=== PATIENT | male | born 1985 | race Caucasian/White ===

== ENCOUNTER 2024-04-16 22:44 | Emergency (ER) | payer SELFPAY ==
[2024-04-16 23:11] VITALS: BP 142/101; PULSE 92; TEMP 37.1; O2SAT 97; BMI 44.8
--- NOTE | 2024-04-16 23:38 | XR_ITS ---
The [address] [address] Patient Name: TONY ETIENNE MRN: [id number] date: 1985 Sex: M Assigned Patient Location: ER Current Patient Location: ER Accession/Order Number: [id number] Exam Date: 04/16/2024 23:45 Report Date: 04/17/2024 02:00 At the request of: DELANEY MARKER Procedure: XR hip RT min 2V EXAM: XR hip RT min 2V HISTORY: fall on ice COMPARISON: None. TECHNIQUE: 2 views of the right hip were obtained. FINDINGS: No acute fracture or dislocation is seen. The right femoral head is well-seated in the acetabulum. The right sacroiliac joint, right hip joint, and pubic symphysis are preserved. XR/XR hip RT min 2V IMPRESSION: 1. No acute fracture or dislocation of the right hip is seen. If there is concern for an occult injury, cross-sectional imaging is recommended. Electronically authenticated by: Vito DIOP Date: 04/17/2024 02:00
--- NOTE | 2024-04-16 23:38 | CT_ITS ---
[address] [address] Patient Name: TONY ETIENNE MRN: [id number] date: 1985 Sex: M Assigned Patient Location: ER Current Patient Location: Accession/Order Number: [id number] Exam Date: 04/16/2024 23:45 Report Date: 04/17/2024 01:28 At the request of: DELANEY MARKER Procedure: CT head/brain wo con EXAM: CT head/brain wo con, CT cervical spine wo con INDICATION: 39 years old; Male. Closed head trauma. Fall on ice. TECHNIQUE: CT Head (ax/cor/sag reformats). Ionizing radiation dose reduced via iterative reconstruction/FBP blend and body size kV/mA adjustment. Comparison: None FINDINGS: POSTOPERATIVE CHANGES: None. BRAIN PARENCHYMA: No intraparenchymal or extra-axial hemorrhage. No mass effect. No midline shift or herniation. Normal owusu/white differentiation. VENTRICLES/EXTRA-AXIAL SPACES: Normal for patient's age. SINUSES/MASTOIDS: Mucoperiosteal thickening is present in the right maxillary sinus. Remaining sinuses are clear. Mastoids and middle ears are clear. MSK: No skull fractures. OTHER: No hyperdense intraluminal thrombus. TECHNIQUE: CT imaging of the cervical spine was performed. IV contrast: None. Dose reduction techniques were achieved by using automated exposure control and/or adjustment of mA and/or kV according to patient size and/or use of iterative reconstruction technique. COMPARISON: None available. FINDINGS: POSTOPERATIVE CHANGES: None. ALIGNMENT: Normal cervical lordosis. Mild torticollis concave to the left. COMPRESSION FRACTURES: No fracture or vertebral body collapse. No bone displacement. No asymmetric widening of the facets. PREVERTEBRAL SOFT TISSUES: Normal. CRANIOCERVICAL JUNCTION: There is a normal relationship of the occipital condyles, lateral masses of C1, and articular surfaces of C2. The base of the dens and body of C2 are intact. There is normal predental space with spurring arising from the anterior arch of C1 POSTERIOR FOSSA: In the tip of the dens. The cerebellar tonsils are above the foramen magnum. Disc levels: C2-C3: No disc herniation. No spinal canal or foraminal narrowing. C3-C4: No disc herniation. No spinal canal or foraminal narrowing. C4-C5: Beam hardening artifacts. Central canal and neural foramina are patent. Facet degeneration on the right. C5-C6: The morning artifacts. Calcification the anterior margin of the annulus. Central canal patent. Neural foramina patent. C6-C7: Beam hardening artifacts. Calcification the anterior margin of the annulus with osteophytes. Central canal patent. Neural foramina patent. C7-T1: The morning artifacts. Central canal patent. Neural foramina patent. UPPER THORACIC SPINE: Please see the separate dictation of the chest CT including the thoracic spine. OTHER: Inhomogeneous appearance of the thyroid gland with ill-defined low densities as well as focal calcification in the left lobe. Recommend nonemergent thyroid ultrasound. CT/CT head/brain wo con IMPRESSION: 1. No acute intracranial abnormality. No hemorrhage or mass effect. 2. Right maxillary sinus thickening. 3. No cervical fracture. No disc herniation or bony stenosis. 4. Inhomogeneous appearance of the thyroid gland with ill-defined hypodensities bilaterally and a calcification on the left. Recommend nonemergent thyroid ultrasound. Electronically authenticated by: JACI CANTRELL Date: 04/17/2024 01:28
--- NOTE | 2024-04-16 23:38 | CT_ITS ---
The [address] [address] Patient Name: TONY ETIENNE MRN: [id number] date: 1985 Sex: M Assigned Patient Location: ER Current Patient Location: ER Accession/Order Number: [id number] Exam Date: 04/16/2024 23:45 Report Date: 04/17/2024 01:59 At the request of: DELANEY MARKER Procedure: CT chest wo con EXAMINATION: CT chest wo con, 04/16/2024 9:45 PM MST HISTORY: fall on ice, right sided rib pain COMPARISON: None. TECHNIQUE: CT scan of the chest was performed without IV contrast. CT dose reduction technique was used, including Automated Exposure Control. FINDINGS: The lungs are clear. The central airways are patent. No pleural effusion or pneumothorax is seen. The cardiac chambers appear normal in size. The thoracic aorta and pulmonary arteries are normal in caliber. There is no mediastinal, hilar, or axillary lymphadenopathy by CT size criteria. There is a small hiatal hernia. Otherwise, the esophagus appears unremarkable. There are multiple hypodense thyroid gland nodules. There is a left thyroid gland calcification. Images through the upper abdomen reveal no significant abnormalities. No suspicious or aggressive bone lesions are seen. No acute fractures are seen. CORONARY ARTERIES: Coronary calcifications are absent. CT/CT chest wo con IMPRESSION: 1. No evidence of acute traumatic injury to the chest is seen. 2. Multiple thyroid gland nodules. These could be further evaluated with a nonemergent outpatient ultrasound examination as clinically indicated. Electronically authenticated by: Vito DIOP Date: 04/17/2024 01:59
--- NOTE | 2024-04-16 23:39 | CT_ITS ---
[address] [address] Patient Name: TONY ETIENNE MRN: [id number] date: 1985 Sex: M Assigned Patient Location: ER Current Patient Location: Accession/Order Number: [id number] Exam Date: 04/16/2024 23:45 Report Date: 04/17/2024 01:28 At the request of: DELANEY MARKER Procedure: CT cervical spine wo con EXAM: CT head/brain wo con, CT cervical spine wo con INDICATION: 39 years old; Male. Closed head trauma. Fall on ice. TECHNIQUE: CT Head (ax/cor/sag reformats). Ionizing radiation dose reduced via iterative reconstruction/FBP blend and body size kV/mA adjustment. Comparison: None FINDINGS: POSTOPERATIVE CHANGES: None. BRAIN PARENCHYMA: No intraparenchymal or extra-axial hemorrhage. No mass effect. No midline shift or herniation. Normal owusu/white differentiation. VENTRICLES/EXTRA-AXIAL SPACES: Normal for patient's age. SINUSES/MASTOIDS: Mucoperiosteal thickening is present in the right maxillary sinus. Remaining sinuses are clear. Mastoids and middle ears are clear. MSK: No skull fractures. OTHER: No hyperdense intraluminal thrombus. TECHNIQUE: CT imaging of the cervical spine was performed. IV contrast: None. Dose reduction techniques were achieved by using automated exposure control and/or adjustment of mA and/or kV according to patient size and/or use of iterative reconstruction technique. COMPARISON: None available. FINDINGS: POSTOPERATIVE CHANGES: None. ALIGNMENT: Normal cervical lordosis. Mild torticollis concave to the left. COMPRESSION FRACTURES: No fracture or vertebral body collapse. No bone displacement. No asymmetric widening of the facets. PREVERTEBRAL SOFT TISSUES: Normal. CRANIOCERVICAL JUNCTION: There is a normal relationship of the occipital condyles, lateral masses of C1, and articular surfaces of C2. The base of the dens and body of C2 are intact. There is normal predental space with spurring arising from the anterior arch of C1 POSTERIOR FOSSA: In the tip of the dens. The cerebellar tonsils are above the foramen magnum. Disc levels: C2-C3: No disc herniation. No spinal canal or foraminal narrowing. C3-C4: No disc herniation. No spinal canal or foraminal narrowing. C4-C5: Beam hardening artifacts. Central canal and neural foramina are patent. Facet degeneration on the right. C5-C6: The morning artifacts. Calcification the anterior margin of the annulus. Central canal patent. Neural foramina patent. C6-C7: Beam hardening artifacts. Calcification the anterior margin of the annulus with osteophytes. Central canal patent. Neural foramina patent. C7-T1: The morning artifacts. Central canal patent. Neural foramina patent. UPPER THORACIC SPINE: Please see the separate dictation of the chest CT including the thoracic spine. OTHER: Inhomogeneous appearance of the thyroid gland with ill-defined low densities as well as focal calcification in the left lobe. Recommend nonemergent thyroid ultrasound. CT/CT cervical spine wo con IMPRESSION: 1. No acute intracranial abnormality. No hemorrhage or mass effect. 2. Right maxillary sinus thickening. 3. No cervical fracture. No disc herniation or bony stenosis. 4. Inhomogeneous appearance of the thyroid gland with ill-defined hypodensities bilaterally and a calcification on the left. Recommend nonemergent thyroid ultrasound. Electronically authenticated by: JACI CANTRELL Date: 04/17/2024 01:28
[2024-04-16] MEDS: ONDANSETRON 4 MG RAPDIS TABLET SL (23:45)
[2024-04-16] MEDS: OXYCODONE HCL/ACETAMINOPHEN 5MG/325MG 1 TAB PO (23:46)
--- NOTE | 2024-04-17 01:07 | ED_ITS ---
HPI HPI - Fall General Chief Complaint: Fall Stated Complaint: FALL-BACK/SIDE PAIN Time Seen by Provider: 04/16/24 23:10 Source: patient Mode of arrival: Wheelchair History of Present Illness HPI Narrative: This 39-year-old male presents for evaluation of right hip pain and right posterior rib cage pain. The patient states he was getting out of his truck earlier today and fell on the ice. He states his feet went out from underneath him and he fell backwards striking the back of his head on the ice. He then fell and slid on his right hip and right posterior rib cage area underneath his friend's truck. The truck was not moving at that time. Since that time he has had pain in the head, neck, right posterior rib cage area and right hip. He denies any loss of consciousness. He has no difficulty breathing. He took ibuprofen and the Flexeril prior to coming to the hospital. Related Data Home Medications ?Medication ?Instructions ?Recorded ?Confirmed No Known Home Medications 04/16/24 04/16/24 Allergies Allergy/AdvReac Type Severity Reaction Status Date / Time No Known Drug Allergies Allergy Verified 04/16/24 23:22 Opioid HPI Opioid Management Most Recent Pain and Opioid Data: Last Pain Scale 5 04/17/24 01:51 04/17/24 Last MAR Pain Assessment 04/17/24 02:47 Review of Systems ROS Status of ROS 10 or more systems reviewed and unremark able except as noted in history and below PFSH PFSH Social History Little interest or pleasure in doing things: not at all Feeling down, depressed, or hopeless: not at all Exam Narrative Exam Narrative: Vital signs and Nursing Notes reviewed: Patient is afebrile with a normal pulse, blood pressure is elevated 142/101, he is not hypoxic with pulse ox of 97% on room air General: Awake, alert, oriented, nontoxic but uncomfortable appearing obese male, he is moving slowly but deliberately, no respiratory distress, GCS 15 HEENT: Normocephalic atraumatic-no visible injury to the head or scalp, patient is bald, mucous membranes are moist and pink, eyes are clear, normal conjunctiva, vision is grossly intact, posterior pharynx is normal in appearance. Neck: Thick, no midline bony vertebral tenderness or step-off Chest: Patient is taking shallow breaths due to right posterior rib cage pain. There is no anterior chest tenderness. In the posterior rib cage area there is no redness, swelling, bruising's or crepitus noted CVS: Regular rate and rhythm S1-S2, no murmurs rubs or gallops, pulses are brisk and equal bilaterally ABD: Soft, nondistended, nontender, no rebound guarding or rigidity, bowel sounds are normal, no pulsatile masses appreciated Extremities: Moving all extremities, no lower extremity tenderness or swelling noted, tenderness to the right posterior hip area. There is a superficial abrasion overlying the right proximal hip area, no midline bony vertebral cer vical, thoracic or lumbar tenderness Skin: Normal in appearance without rash,pallor, petechiae or purpura Neuro: No focal deficits Constitutional Vital Signs, click to edit/add: Last Vital Signs Temp 98.7 F 04/16/24 23:11 Pulse 92 H 04/16/24 23:11 Resp 14 04/17/24 02:53 BP 132/91 04/17/24 01:54 Pulse Ox 97 04/16/24 23:11 O2 Del Method Room Air 04/16/24 23:11 Course Vital Signs Vital signs: Vital Signs Temperature 98.7 F 04/16/24 23:11 Pulse Rate 92 H 04/16/24 23:11 Respiratory Rate 16 04/16/24 23:11 Blood Pressure 142/101 H 04/16/24 23:11 Pulse Oximetry 97 04/16/24 23:11 Oxygen Delivery Method Room Air 04/16/24 23:11 Temperature 98.7 F 04/16/24 23:11 Pulse Rate 92 H 04/16/24 23:11 Respiratory Rate 14 04/17/24 02:53 Blood Pressure 132/91 04/17/24 01:54 Pulse Oximetry 97 04/16/24 23:11 Oxygen Delivery Method Room Air 04/16/24 23:11 MDM - Fall MDM Narrative Medical decision making narrative: This 39-year-old male presents for evaluation of right flank and right hip pain. The patient was getting out of a truck earlier in the day and slipped on the ice striking the back of his head on the ground and then falling on his right hip and right rib cage area and sliding underneath his friend's truck. He has been having pain with any kind of movement in the right side since that time. He states he could barely get out of bed, sit or stand or walk. This was mostly due to the pain in his right hip. His neuroexam is normal. He does have a small abrasion over his right hip but otherwise his physical exam is benign. He is not having any shortness of breath. He has no weakness or numbness. He was medicated with a dose of Percocet, IM Norflex and when his CT scan of his brain was read as normal he was given IM Toradol. On reevaluation his symptoms have improved greatly. He is now able to ambulate and sit down and stand up without severe pain. CT scan of the brain and cervical spine which are included in the body of this report do not show any acute findings but did show a thyroid nodule. CT scan of the chest does not show any acute fractures or other notable abnormality. X-ray of the right hip is negative for acute findings. On reevaluation he is feeling much more comfortable and feels comfortable being discharged home. He was given 2 Percocet and a Zofran to take as needed until his prescriptions for Percocet, ibuprofen and Norflex can be filled. He was encouraged to rest, drink plenty of fluids, gentle stretching and given a note for work for this evening. Medical Records Medical records narrative: The [address] [address] [address] Scan Report Signed Patient: TONY ETIENNE MR#: [id number] : 1985 Acct:[id number] Age/Sex: 39 / M ADM Date: 04/16/24 Loc: ER Attending Dr: Ordering Physician: Rupa Romero Date of Service: 04/16/24 Procedure(s): CT head/brain wo con Accession Number(s): [id number] cc: Physician,Non-Staff M.D.~ The [address] [address] Patient Name: TONY ETIENNE MRN: [id number] date: 1985 Sex: M Assigned Patient Location: ER Current Patient Location: ER Accession/Order Number: [id number] Exam Date: 04/16/2024 23:45 Report Date: 04/17/2024 01:28 At the request of: RUPA ROMERO Procedure: CT head/brain wo con EXAM: CT head/brain wo con, CT cervical spine wo con INDICATION: 39 years old; Male. Closed head trauma. Fall on ice. TECHNIQUE: CT Head (ax/cor/sag reformats). Ionizing radiation dose reduced via iterative reconstruction/FBP blend and body size kV/mA adjustment. Comparison: None FINDINGS: POSTOPERATIVE CHANGES: None. BRAIN PARENCHYMA: No intraparenchymal or extra-axial hemorrhage. No mass effect. No midline shift or herniation. Normal owusu/white differentiation. VENTRICLES/EXTRA-AXIAL SPACES: Normal for patient's age. SINUSES/MASTOIDS: Mucoperiosteal thickening is present in the right maxillary sinus. Remaining sinuses are clear. Mastoids and middle ears are clear. MSK: No skull fractures. OTHER: No hyperdense intraluminal thrombus. TECHNIQUE: CT imaging of the cervical spine was performed. IV contrast: None. Dose reduction techniques were achieved by using automated exposure control and/or adjustment of mA and/or kV according to patient size and/or use of iterative reconstruction technique. COMPARISON: None available. FINDINGS: POSTOPERATIVE CHANGES: None. ALIGNMENT: Normal cervical lordosis. Mild torticollis concave to the left. COMPRESSION FRACTURES: No fracture or vertebral body collapse. No bone displacement. No asymmetric widening of the facets. PREVERTEBRAL SOFT TISSUES: Normal. CRANIOCERVICAL JUNCTION: There is a normal relationship of the occipital condyles, lateral masses of C1, and articular surfaces of C2. The base of the dens and body of C2 are intact. There is normal predental space with spurring arising from the anterior arch of C1 POSTERIOR FOSSA: In the tip of the dens. The cerebellar tonsils are above the foramen magnum. Disc levels: C2-C3: No disc herniation. No spinal canal or foraminal narrowing. C3-C4: No disc herniation. No spinal canal or foraminal narrowing. C4-C5: Beam hardening artifacts. Central canal and neural foramina are patent. Facet degeneration on the right. C5-C6: The morning artifacts. Calcification the anterior margin of the annulus. Central canal patent. Neural foramina patent. C6-C7: Beam hardening artifacts. Calcification the anterior margin of the annulus with osteophytes. Central canal patent. Neural foramina patent. C7-T1: The morning artifacts. Central canal patent. Neural foramina patent. UPPER THORACIC SPINE: Please see the separate dictation of the chest CT including the thoracic spine. OTHER: Inhomogeneous appearance of the thyroid gland with ill-defined low densities as well as focal calcification in the left lobe. Recommend nonemergent thyroid ultrasound. CT/CT head/brain wo con IMPRESSION: 1. No acute intracranial abnormality. No hemorrhage or mass effect. 2. Right maxillary sinus thickening. 3. No cervical fracture. No disc herniation or bony stenosis. 4. Inhomogeneous appearance of the thyroid gland with ill-defined hypodensities bilaterally and a calcification on the left. Recommend nonemergent thyroid ultrasound. Electronically authenticated by: JACI CANTRELL Date: 04/17/2024 01:[address] [address] XRay Report Signed Patient: TONY ETIENNE MR#: [id number] : 1985 Acct:[id number] Age/Sex: 39 / M ADM Date: 04/16/24 Loc: ER Attending Dr: Ordering Physician: Rupa Romero Date of Service: 04/16/24 Procedure(s): XR hip RT min 2V Accession Number(s): [id number] cc: Rupa Romero; Physician,Non-Staff M.D.~ The [address] [address] Patient Name: TONY ETIENNE MRN: [id number] date: 1985 Sex: M Assigned Patient Location: ER Current Patient Location: ER Accession/Order Number: [id number] Exam Date: 04/16/2024 23:45 Report Date: 04/17/2024 02:00 At the request of: RUPA ROMERO Procedure: XR hip RT min 2V EXAM: XR hip RT min 2V HISTORY: fall on ice COMPARISON: None. TECHNIQUE: 2 views of the right hip were obtained. FINDINGS: No acute fracture or dislocation is seen. The right femoral head is well-seated in the acetabulum. The right sacroiliac joint, right hip joint, and pubic symphysis are preserved. XR/XR hip RT min 2V IMPRESSION: 1. No acute fracture or dislocation of the right hip is seen. If there is concern for an occult injury, cross-sectional imaging is recommended. Electronically authenticated by: Vito DIOP Date: 04/17/2024 02:[address] [address] [address] Scan Report Signed Patient: TONY ETIENNE MR#: [id number] : 1985 Acct:[id number] Age/Sex: 39 / M ADM Date: 04/16/24 Loc: ER Attending Dr: Ordering Physician: Rupa Romero Date of Service: 04/16/24 Procedure(s): CT chest wo con Accession Number(s): [id number] cc: Physician,Non-Staff M.D.~ The [address] [address] Patient Name: TONY ETIENNE MRN: [id number] date: 1985 Sex: M Assigned Patient Location: ER Current Patient Location: ER Accession/Order Number: [id number] Exam Date: 04/16/2024 23:45 Report Date: 04/17/2024 01:59 At the request of: RUPA ROMERO Procedure: CT chest wo con EXAMINATION: CT chest wo con, 04/16/2024 9:45 PM MST HISTORY: fall on ice, right sided rib pain COMPARISON: None. TECHNIQUE: CT scan of the chest was performed without IV contrast. CT dose reduction technique was used, including Automated Exposure Control. FINDINGS: The lungs are clear. The central airways are patent. No pleural effusion or pneumothorax is seen. The cardiac chambers appear normal in size. The thoracic aorta and pulmonary arteries are normal in caliber. There is no mediastinal, hilar, or axillary lymphadenopathy by CT size criteria. There is a small hiatal hernia. Otherwise, the esophagus appears unremarkable. There are multiple hypodense thyroid gland nodules. There is a left thyroid gland calcification. Images through the upper abdomen reveal no significant abnormalities. No suspicious or aggressive bone lesions are seen. No acute fractures are seen. CORONARY ARTERIES: Coronary calcifications are absent. CT/CT chest wo con IMPRESSION: 1. No evidence of acute traumatic injury to the chest is seen. 2. Multiple thyroid gland nodules. These could be further evaluated with a nonemergent outpatient ultrasound examination as clinically indicated. Electronically authenticated by: Vito DIOP Date: 04/17/2024 01:59 Discharge Plan Discharge Chief Complaint: Fall Clinical Impression: Fall due to ice or snow, Contusion of rib on right side, Contusion of left hip, Closed head injury, Cervical strain, acute Patient Disposition: Home, Self-Care Time of Disposition Decision: 02:42 Prescriptions / Home Meds: No Action No Known Home Medications Print Language: Mauritian Instructions: Cervical Strain (ED), Head Injury (ED), Contusion in Adults (ED), Hip Contusion (ED), Rib Contusion (ED) Referrals: Physician,Non-Staff, MD [Primary Care Provider] - 1 week Discharge Date/Time: 04/17/24 02:57
[2024-04-17] MEDS: ORPHENADRINE 60 MG/ 2 ML VIAL IM (01:22)
[2024-04-17] MEDS: KETOROLAC TROMETHAMINE 60 MG/2 ML VIAL IM (01:51)
[2024-04-17 01:54] VITALS: BP 132/91
[2024-04-17] MEDS: ONDANSETRON 4 MG RAPDIS TABLET SL (02:46)
[2024-04-17] MEDS: OXYCODONE HCL/ACETAMINOPHEN 5MG/325MG 2 TAB PO (02:47)
== END 2024-04-17 02:57 | disposition home or self-care (01) ==
PROVIDERS: Emergency Provider Emergency Medicine
DX: S70.01XA Contusion of right hip, initial encounter (principal); S20.211A Contusion of right front wall of thorax, initial encounter; S09.8XXA Other specified injuries of head, initial encounter; S16.1XXA Strain of muscle, fascia and tendon at neck level, initial encounter; S70.211A Abrasion, right hip, initial encounter; W00.0XXA Fall on same level due to ice and snow, initial encounter
CPT/HCPCS: 70450; 71250; 72125; 73502; 96372; 99284; J1885; J2360; Q0162

== ENCOUNTER 2024-04-21 08:41 | Outpatient (OUT) | payer OTHER, SELFPAY ==
--- OUTSIDE RECORDS SUMMARY | 2024-04-21 08:46 | XMS_ITS | CCD ---
Author Organization [facility] Inform ion Partnership [facility] Care Team Providers Care Sound Effects Technician Name Role Phone REQUEST, DR NONE LISTED Primary Care UnavailPRITESH Quintero Attending PRITESH Sierra Consulting PRITESH Sierra Admitting Unavailable LULA REAL Admitting UnavailLULA Heath Attending Unavailabl e FARHAN, LULA Hutson Attending Unavailabl e Allergies Allergy Classification Reported Allergen(s) Allergy Type Date of Onset Reaction(s) Facility (1 source) Codeine Drug Allergy 12-23-[address] [facility] Repository Problems Problem Classification Problem Date Documented Date Episodic/Chronic Contraceptive and procreative management (1 source) Contraception status; Translations: [Encounter for other general counseling and advice on contraception] Onset: 04-03-2023 Episodic Essential hypertension (1 source) Essential (primary) hypertension; Translations: [ESSENTIAL PRIMARY HYPERTENSION] Onset: 11-23-2020 Chronic Other skin disorders (1 source) Follicular cyst of the skin and subcutaneous tissue, unspecified; Translations: [FOLLICULAR CYST SKIN SUBQ TISS UNS] Onset: 11-23-2020 Episodic Skin and subcutaneous tissue infections (1 source) Local infection of the skin and subcutaneous tissue, unspecified; Translations: [LOCAL INFECT SKIN SUBQ TISSUE UNS] Onset: 11-23-2020 Episodic Spondylosis; intervertebral disc disorders; other back problems (3 sources) Cervicalgia; Translations: [CERVICALGIA] Onset: 11-21-2020 Episodic Substance-related disorders (2 sources) Nicotine dependence; Translations: [Nicotine dependence, unspecified, uncomplicated] Onset: 04-03-2023 Chronic Unclassified (1 source) Patient encounter status 04-03-2023 Results Test Name Value Interpretation Reference Range Facil it Family Medicine Office/Clini c Noteon 04-20-2024 Family Medicine Office/Clinic Note Family Medicine Office/Clinic Note [facility] Staff French is a 39 year old male presenting with F/U FROM ER Acute: Current issues/complaints: Had ER @ [facility] 04/17/24 fell- has bruised ribs ER followup: Hospital: [facility] Visit date: 04/16/24 Symptoms the presented with: Fell on ice Current concerns: Still sore, but better then what he was, CT on neck and lungs and found several large modules they told him to F/u with PCP History of Present Illness 39 year old presents today to establish care and to f/u on recent ED visit after sustaining a fall on the ice on 04/17/2024. He reports he fell on the ice which resulted in right ribcage pain and right posterior hip pain. He had denies hitting his head at the time and the CT of the head/brain was negative but revealed hypodensities of the thyroid gland. Additional testing included a Xray of the right hip which was negative and a CT of the chest which revealed multiple thyroid nodules. He reports he continues with mild pain to the right lower lumbar region and the righ ribs. He states he has not taken more than 1/2 of the Percocet prescribed by the MD in the ED. He reports he has used ibuprofen 600 mg and this is treating his pain marginally. He declines a refill of the ibuprofen at this visit and states he wanted to f/u on the thyroid issues at this visit. He denies any family hx of thyroid disorders. He denies and intolerance to cold or heat. He reports he sometimes feels like something may be stuck in his throat. Review of Systems PHQ Score Initial Depression Screen Score: 0 SCORE Constitutional: no fever, no chills, no sweats, no weakness Skin: no Jaundice, no rash, no lesions, nopetechiae ENMT: no ear pain, no sore throat, no congestion, no hoarseness Respiratory: no shortness of breath, no cough, no orthopnea, no wheezing Cardiovascular: no chest pain, no palpitations, no edema Gastrointestinal: no nausea, no vomiting, no diarrhea, no GI bleeding Genitourinary: no dysuria, no hematuria, no discharge, no pain Musculoskeletal: mild back pain, no trauma Neurologic: no headache, no dizziness, no numbness, no weakness Psychiatric: no sleeping problems, no irritability, no mood swings/depression. Heme/Lymph: no bleeding tendency, no bruising tendency, no petechiae, no swollen nodes Allergy/Immunologic: no seasonal allergies, no food allergies, no recurrent infections, no impaired immunity Additional ROS info: Except as noted in the above Review of Systems and in the History of Present Illness all other systems have been reviewed and are negative or noncontributory. Physical Exam Vitals & Measurements T: 36.5 ???C(Oral) HR: 86(Peripheral) RR: 20 BP: 132/84 SpO2: 99% HT: 67 in HT: 170.0 cm WT: 132.5 kg WT: 292.112 lb BMI: 45.85 General: alert, no acute distress Skin: warm, dry Head: no trauma, normocephalic Neck: Trachea midline, no adenopathy, no tenderness; no thyroidmegaly Eye: normal conjunctiva, sclera clear ENMT: TM's clear, oral mucosa moist, no pharyngeal erythema or exudate Cardiovascular: regular rate and rhythm, normal peripheral perfusion Respiratory: Lungs CTA, respirations non labored Chest wall: no deformity. Gastrointestinal: soft, non distended, no tenderness, no guarding. Back: No tenderness, Normal ROM, Normal alignment. Extremities: no deformity, no trauma Neurological: oriented x 4, LOC appropriate for age, CN II-XII intact, motor strength equal & normal bilaterally, sensation equal & normal bilaterally, speech normal Psychiatric: cooperative, affect appropriate for age, normal judgement, normal psychiatric thoughts. Assessment/Plan 1. 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 Encounter to establish care with new provider (Z76.89: Persons encountering health services in other specified circumstances) 3. Vapes nicotine containing substance (Z72.0: Tobacco use) Encouraged to stop vaping Ordered: US Thyroid 4. BMI 45.0-49.9, adult (Z68.42: Body mass index [BMI] 45.0-49.9, adult) The standard range for ages 18 and older is >=18.5 and < 25 kg/m2. Your BMI today was above this range, this falls in the overweight to obese category and there are medical benefits to weight loss. We can offer counselling, referral, and/or medical support in addressing this problem. Your BMI and weight management will be followed at subsequent visits. Ordered: US Thyroid 5. Exogenous obesity (E66.09: Other obesity due to excess calories) The standard range for ages 18 and older is >=18.5 and < 25 kg/m2. Your BMI today was above this range, this falls in the overweight to obese category and there are medical benefits to weight loss. We can offer counselling, referral, and/or medical support (more content not included)... Normal [facility] Comment on above: Result Comment: Elec tronically Signed By: PALMA REAL CNP\.br\Date and Time Signed: 04/20/24 09:44 EST Vancomycin,Peakon 11-25-2020 Vancomycin,Peak 22.3 ug/mL Normal 20.0-40.0 [facility] Comment on above: Order Comment: Comme nt ?DRAW 1 HOUR AFTER INFUSION COMPLETES Date of last dose?: 20201124 Time of last dose?: 1899 Result Comment: Last dose: - PERFORMED BY: [place] [address] PATHOLOGIST TANNING WHEEL OPERATOR AZIZA MATSON M.D. Performed By: #### V ANCP #### [place] [id number] [facility] Vancomycin,Troughon 11-26-19 21 Vancomycin,Trough 10.6 ug/mL Normal 10.0-20.0 [facility] Comment on above: Result Comment: Last dose: - PERFORMED BY: [place] [address] PATHOLOGIST TANNING WHEEL OPERATOR AZIZA MATSON M.D. Performed By: #### V ANCT #### [facility] [address] [place], [place] [id number] [facility] Basic Metabolic Panelon 11-03 Calcium [Mass/Vol] 8.3 mg/dL Normal 8.2-10.2 [facility] Comment on above: Performed By: #### C BC, BMP #### [address] Chloride [Moles/Vol] 104 mmol/L Normal 95-114 [facility] Comment on above: Performed By: #### C BC, BMP #### [address] CO2 [Moles/Vol] 23.6 mmol/L Normal 22.0-30.0 [facility] Comment on above: Performed By: #### C BC, BMP #### [address] Creatinine [Mass/Vol] 0.74 mg/dL Normal 0.64-1.27 [facility] Comment on above: Performed By: #### C BC, BMP #### [address] Creatinine Clr Calc Pharmacy 203.38 [facility] Comment on above: Result Comment: PERF ORMED BY: [place] [address] PATHOLOGIST TANNING WHEEL OPERATOR AZIZA MATSON M.D. Performed By: #### C BC, BMP #### [address] Estimated GFR ( Diana > 60 [facility] Comment on above: Result Comment: GFR estimated reference range: According to KDOQI guidelines, <60 ml/min/1.73m2 is sufficient to diagnose a patient with chronic kidney disease. Performed By: #### C BC, BMP #### [address] Estimated GFR (Non- Am > 60 [facility] Comment on above: Performed By: #### C BC, BMP #### [address] Glucose [Mass/Vol] 93 mg/dL Normal 70-100 [facility] Comment on above: Result Comment: [place] Glucose Reference Range is dependent on time and content of last meal. Glucose of more than 200 mg/dL in a nonstressed, ambulatory subject supports the diagnosis of Diabetes Mellitus. ADA recommended reference range Performed By: #### C BC, BMP #### [facility] [address] Potassium [Moles/Vol] 4.1 mmol/L Normal 3.5-5.1 [facility] Comment on above: Performed By: #### C BC, BMP #### [facility] [address] [place] [address] Sodium [Moles/Vol] 138 mmol/L Normal 136-146 [facility] Comment on above: Performed By: #### C BC, BMP #### [address] Urea nitrogen [Mass/Vol] 6 mg/dL Low 9- [facility] Comment on above: Performed By: #### C BC, BMP #### [address] Blood Cultureon 11-23-2020 Bacteria identified Cx Nom (Bld) NO GROWTH 5 DAYS PERFORMED BY: [place] [address] PATHOLOGIST TANNING WHEEL OPERATOR AZIZA MATSON M.D. [facility] Comment on above: Performed By: #### C UBLD #### [address] Bacteria identified Cx Nom (Bld) NO GROWTH 5 DAYS PERFORMED BY: [place] [address] PATHOLOGIST TANNING WHEEL OPERATOR AZIZA MATSON M.D. [facility] Comment on above: Performed By: #### C UBLD #### [address] COVID-19 Antigenon 1 COVID-19 Antigen Healthcare Worker?: N Raisa Reference Raisa Reference Negative SARS-CoV+SARS-CoV-2 (COVID-19) Ag [Presence] in Respiratory specimen by Rapid immunoassay Negative for SARS Antigen by CHARMAINE COVID19 Blank Space Raisa Disclaimer Negative results, from patients with symptom Raisa Disclaimer onset beyond five days, should be treated as Raisa Disclaimer presumptive and confirmation with a molecular Raisa Disclaimer assay, if necessary, for patient management, Raisa Disclaimer may be performed. Negative results do not rule Raisa Disclaimer out COVID-19 and should not be used as the sole Raisa Disclaimer basis for treatment or patient management Raisa Disclaimer decisions, including infection control decisions. Raisa Disclaimer Negative results should be considered in the Raisa Disclaimer context of a patient's recent exposures, history Raisa Disclaimer and the presence of clinical signs and symptoms Raisa Disclaimer consistent with COVID-19. COVID19 Blank Space Raisa Disclaimer The Raisa SARS Antigen CHARMAINE does not differentiate Raisa Disclaimer between SARS-CoV and SARS-CoV-2. COVID19 Blank Space Riasa Disclaimer This test was developed and its performance Raisa Disclaimer characteristic determined by [employer] and Raisa Disclaimer validated at [facility]. This Raisa Disclaimer test has not been FDA cleared or approved. This Raisa Disclaimer test has been authorized by FDA under an Emergency Use Raisa Disclaimer Authorization (EUA). This test has been validated Raisa Disclaimer in accordance with the FDA's Guidance Document (Policy Raisa Disclaimer for Diagnostics Testing in Laboratories Certified to Raisa Disclaimer Perform High Complexity Testing under CLIA prior to Raisa Disclaimer Emergency Use Authorization for Coronavirus Raisa Disclaimer isease-2018 during the Public Health Emergency) Raisa Disclaimer issued on June 04, 2019. This test is only authorized Raisa Disclaimer for the duration of time the declaration that Raisa Disclaimer circumstances exist justifying the authorization of Raisa Disclaimer the emergency use of in vitro diagnostic tests for Raisa Disclaimer detection of SARS-CoV-2 virus and/or diagnosis of Raisa Disclaimer COVID-19 infection under section 564(b)(1) of the Raisa Disclaimer Act, 21 U.S.C. 360bbb-3(b)(1), unless the Raisa Disclaimer authorization is terminated or revoked sooner. PERFORMED BY: [place] [address] PATHOLOGIST TANNING WHEEL OPERATOR AZIZA MATSON M.D. Normal [facility] Comment on above: Performed By: #### C OVID-19 RAISA, COVID 19 [facility], SOFIANEG #### [address] COVID-19 [facility] SARS-CoV-2 (COVID-19) RNA CAROL+probe Ql (Unsp spec) Negative Normal Negative [facility] Comment on above: Order Comment: Healt hcare Worker?: N Result Comment: Testing for SARS-CoV-2 by RT-PCR This test was developed and its performance characteristics determined by [employer]) and validated at the [facility]. This test has not been FDA cleared or approved. This test has been authorized by FDA under an Emergency Use Authorization (EUA). This test has been validated in accordance with the FDA's Guidance Document (Policy for Diagnostics Testing in Laboratories Certified to Perform High Complexity Testing under CLIA prior to Emergency Use Authorization for Coronavirus Disease-2019 during the Public Health Emergency) issued on June 04, 2019. This test is only authorized for the duration of time the declaration that circumstances exist justifying the authorization of the emergency use of in vitro diagnostic tests for detection of SARS-CoV-2 virus and/or diagnosis of COVID-19 infection under section 564(b)(1) of the Act, 21 U.S.C. 360bbb-3(b)(1), unless the authorization is terminated or revoked sooner. PERFORMED BY: [place] [address] PATHOLOGIST TANNING WHEEL OPERATOR AZIZA MATSON M.D. Performed By: #### C OVID-19 RAISA, COVID 19 [facility], SOFIANEG #### [address] soft tissue neck w conon 11-23-2020 CT soft tissue neck w con [facility] [place] [address] [place] [address] CT Scan Report Signed Patient: French Snow MR#: [id number] : 1985 Acct:[id number] Age/Sex: 35 / M ADM Date: 11/23/20 Loc: ER Room: Type: [facility] ER Attending Dr: Ordering Provider: Nura Tapia APRN Date of Service: 11/23/20 CT/CT soft tissue neck w con: mass posterior neck Copies to: Nura Tapia APRN CT SOFT TISSUE NECK WITH CONTRAST COMPARISON: None CLINICAL DATA: Left neck lump for the past few days. Spiral images were obtained through the neck following 90 mL Isovue-300. This CT exam was performed using one or more following dose reduction techniques: Automated exposure control, adjustment of the mA and/or kV according to patient size, or use of iterative reconstruction technique. Assessment is slightly limited by large body habitus. The thyroid lobes are mildly heterogeneous and there is calcification on the left. The submandibular and parotid glands appear symmetric. There is mild prominence of the adenoids and tonsils. There is no suspected abscess. There is slight associated narrowing of the oropharyngeal airway at this site. The epiglottis and vocal cords are unremarkable. There are a few small shotty cervical lymph nodes however none which are pathologically enlarged or necrotic. There is asymmetric subcutaneous edema at the posterior left neck there may also be minor asymmetric skin thickening. This might be cellulitis. Correlation is recommended as to whether not this is the site of patient's symptoms. The cervical spine is unremarkable. There is a trace amount of fluid within the right maxillary sinus. The remaining nasal sinuses and mastoid air cells are clear. Limited images through the upper lungs show no contributory findings. CT/CT soft tissue neck w con IMPRESSION: MILD NONSPECIFIC PROMINENCE OF THE TONSILS AND ADENOIDS. NO MASS OR ADENOPATHY THOUGH THERE IS SUBCUTANEOUS INFLAMMATION AND SLIGHT SKIN THICKENING AT THE BACK OF THE NECK ON THE LEFT. CLINICAL CORRELATION IS SUGGESTED. MINOR RIGHT MAXILLARY SINUS DISEASE. Impression dictated by: Antonia Campbell M.D.11/23/2020 3:53 PM Dictation Location: [place] [address] Transcribed By: [facility] 11/23/20 155 Dictated By: Antonia Campbell MD 11/23/20 1543 Signed By: 11/23/20 1553 Normal [facility] Complete Blood Count Auto Di ffon 11-23-2020 Basophils (Bld) [#/Vol] 0.1 10*3/uL Normal 0.0-0.2 [facility] Comment on above: Result Comment: PERF ORMED BY: [place] [address] PATHOLOGIST TANNING WHEEL OPERATOR AZIZA MATSON M.D. Performed By: #### C BC, BMP #### [address] Basophils/100 WBC (Bld) 0.6 % Normal . [facility] Comment on above: Performed By: #### C BC, BMP #### [address] Eosinophils (Bld) [#/Vol] 0.2 10*3/uL Normal 0.0-0.45 [facility] Comment on above: Performed By: #### C BC, BMP #### [address] Eosinophils/100 WBC (Bld) 1.1 % Normal . [facility] Comment on above: Performed By: #### C BC, BMP #### [address] Erythrocyte distribution width (RBC) [Ratio] 12.5 % Normal 12.0-14.8 [facility] Comment on above: Performed By: #### C BC, BMP #### [place] [address] [place] Hematocrit (Bld) [Volume fraction] 48.7 % Normal 38.8-50.0 [facility] Comment on above: Performed By: #### C BC, BMP #### [facility] [address] Hemoglobin (Bld) [Mass/Vol] 16.7 g/dL Normal 13.0-17.0 [facility] Comment on above: Performed By: #### C BC, BMP #### [facility] [address] Lymphocytes (Bld) [#/Vol] 3.1 10*3/uL Normal 1.00-4.8 [facility] Comment on above: Performed By: #### C BC, BMP #### [address] Lymphocytes/100 WBC (Bld) 21.6 % Normal . [facility] Comment on above: Performed By: #### C BC, BMP #### [address] MCH (RBC) [Entitic mass] 31.1 pg Normal 27.5-35.2 [facility] Comment on above: Performed By: #### C BC, BMP #### [address] MCV (RBC) [Entitic vol] 90.8 fL Normal 83.5-101 [facility] Comment on above: Performed By: #### C BC, BMP #### [address] Mean Corpuscular HGB Conc 34.2 g/dL Normal 32.5-35.6 [facility] Comment on above: Performed By: #### C BC, BMP #### [address] Monocytes (Bld) [#/Vol] 0.8 10*3/uL Normal 0.0-0.8 [facility] Comment on above: Performed By: #### C BC, BMP #### [place] [id number] [place] Monocytes/100 WBC (Bld) 5.7 % Normal . [facility] Comment on above: Performed By: #### C BC, BMP #### [facility] [address] Neutrophils (Bld) [#/Vol] 10.3 10*3/uL High 1.8-7.7 [facility] Comment on above: Performed By: #### C BC, BMP #### [facility] [address] Neutrophils/100 WBC (Bld) 71.0 % Normal . [facility] Comment on above: Performed By: #### C MARY, BMP #### [facility] [address] Nucleated RBC/100 WBC (Bld) [Ratio] 0.0 % Normal 0-0.5 [facility] Comment on above: Performed By: #### C MARY, BMP #### [facility] [address] Platelet mean volume (Bld) [Entitic vol] 7.9 fL Normal 6.6-10.1 [facility] Comment on above: Performed By: #### C BC, BMP #### [place] [address] [place] Platelets (Bld) [#/Vol] 266 10*3/uL Normal 150-450 [facility] Comment on above: Performed By: #### C BC, BMP #### [facility] [address] [place] [address] [place] RBC (Bld) [#/Vol] 5.37 10*6/uL Normal 3.90-5.60 [facility] Comment on above: Performed By: #### C BC, BMP #### [facility] [address] [place] [address] [place] WBC (Bld) [#/Vol] 14.4 10*3/uL High 4.5-11.0 [facility] Comment on above: Performed By: #### C BC, BMP #### [facility] [address] [place] [id number] [facility] Raisa Ag Negativeon 11-24-19 21 Raisa Ag Negative Negative Normal Negative [facility] Comment on above: Result Comment: This is a duplicate Raisa SARS Antigen (CHARMAINE) result to be used for statistical tracking purpose only. PERFORMED BY: [facility] [address] [facility] [place] [id number] PATHOLOGIST TANNING WHEEL OPERATOR AZIZA MATSON M.D. Performed By: #### C OVID-19 RAISA, COVID 19 [facility] SOFI[facility]G #### [facility] [address] [place] [id number] [facility] Vital Signs Date Time Vital Sign Value Performing Clinician Jadeni lity 04-03-2023 08:13-0500 Blood Pressure Location Priyanka Camara [facility] 04-03-2023 08:13-0500 Diastolic blood pressure 84 mm[Hg] Priyanka Navarretee [facility] 04-03-2023 08:13-0500 Systolic blood pressure 124 mm[Hg] Priyanka Lue [facility] Encounters Encounter Date Encounter Type Care Provider Facility Start: 04-20-2024 ambulatory LULA REAL Fa cility:[facility] Start: 04-17-2024 ambulatory LULA REAL Faci lity:[facility] Start: 04-03-2023 End: 04-03-2023 Patient encounter procedure Priyanka Camara [facility] Start: 11-21-2020 End: 11-21-[address] NONE LISTED REQUEST Facility: Immunizations Immunization Date Immunization Notes Care Provider Fa cility 01-01-2021 SARS-CoV-2 (COVID-19 ) Ad26 vaccine, recombinant Priyanka Camara [facility] 04-20-1997 measles, mumps and rubella virus vaccine Priyanka Camara [facility] Payers Date Payer Category Payer Unknown [id number] 1985 Unknown [id number] [id number] [id number] 1985 Unknown [id number] [id number] 1985 Unknown [id number] [id number] 1959 Unknown [id number] Social History Date Type Detail Facility Start: 04-03-2023 Tobacco smoking status Light t obacco smoker (finding) [facility] Sex Assigned At Male [facility] Functional Status Date Assessment Result Facility 04-03-2023 Functional Status N/A [facility] Clinical Note 04-20-2024 Note Date & Type Note Facility 04-20-2024 Note Patient Education Endocrinology Thyroid Nodule A thyroid nodule is an isolated growth of thyroid cells that forms a lump in the thyroid gland. The thyroid gland is a butterfly-shaped gland found in the lower front of the neck. It sends chemical messengers (hormones) through the blood to all parts of the body. These hormones are important in regulating body temperature and helping the body use energy. Thyroid nodules are common. Most are not cancerous (are benign). You may have one nodule or several nodules. There are different types of thyroid nodules. They include nodules that: ??? Grow and fill with fluid (thyroid cysts). ??? Produce too much thyroid hormone (hot nodules or hyperthyroid). ??? Produce no thyroid hormone (cold nodules or hypothyroid). ??? Form from cancer cells (thyroid cancers). What are the causes? In most cases, the cause of thyroid nodules is not known. What increases the risk? The following factors may make you more likely to develop thyroid nodules: ??? Age. Thyroid nodules are more common in people who are older than 45 years. ??? Female gender. ??? A family history that includes: ? Thyroid nodules. ? Pheochromocytoma. ? Thyroid carcinoma. ? Hyperparathyroidism. ??? Certain thyroid diseases, such as Gerry's thyroiditis. ??? Lack of iodine in your diet. ??? A history of head and neck radiation, such as from cancer treatments. ??? Type 2 diabetes. What are the signs or symptoms? In many cases, there are no symptoms. If you have symptoms, they may include: ??? A lump in your lower neck. ??? Feeling pressure, fullness, or a tickle in your throat. ??? Pain in your neck, jaw, or ear. ??? Having trouble swallowing or breathing. Hot nodules may cause: ??? Weight loss. ??? Warm, flushed skin. ??? Feeling hot. ??? Feeling nervous. ??? A rapid or irregular heartbeat. Cold nodules may cause: ??? Weight gain. ??? Dry skin. ??? Hair loss, brittle hair, or both. ??? Feeling cold. ??? Fatigue. Thyroid cancer nodules may cause: ??? Hard nodules that can be felt along the thyroid gland. ??? Hoarseness. ??? Lumps in the tissue (lymph nodes) near your thyroid gland. How is this diagnosed? A thyroid nodule may be felt by your health care provider during a physical exam. This condition may also be diagnosed based on your symptoms. You may also have tests, including: ??? Blood tests to check how well your thyroid is working. ??? An ultrasound. This may be done to confirm the diagnosis. ??? A biopsy. This involves taking a sample from the nodule and looking at it under a microscope. ??? A thyroid scan. This test creates an image of the thyroid gland using a radioactive tracer. ??? Imaging tests such as an MRI or CT scan. These may be done if: ? A nodule is large. ? A nodule is blocking your airway. ? Cancer is suspected. How is this treated? Treatment depends on the cause and size of your nodule or nodules. If a nodule is benign, treatment may not be necessary. Your health care provider may monitor the nodule to see if it goes away without treatment. If a nodule continues to grow, is cancerous, or does not go away, treatment may be needed. Treatment may include: ??? Having a cystic nodule drained with a needle. ??? Ablation therapy. In this treatment, alcohol is injected into the area of the nodule to destroy the cells. Ablation with heat may also be used. This is called thermal ablation. ??? Radioactive iodine. In this treatment, radioactive iodine is given as a pill or liquid that you drink. This substance causes the thyroid nodule to shrink. ??? Surgery to remove the nodule or nodules. Part or all of your thyroid gland may also need to be removed. ??? Medicines to treat hyperthyroidism. Follow these instructions at home: ??? Pay attention to any changes in your thyroid nodule or nodules. ??? Take elvl-tps-hagucqw and prescription medicines only as told by your health care provider. ??? Keep all follow-up visits. This is important. Contact a health care provider if: ??? You have trouble sleeping. ??? You have muscle weakness. ??? You have significant weight loss without changing your eating habits. ??? You feel nervous. ??? You have trouble swallowing. ??? You have increased swelling. ??? You have a rapid or irregular heartbeat. Get help right away if: ??? You have chest pain. ??? You faint or lose consciousness. ??? Your nodule makes it hard for you to breathe. These symptoms may be an emergency. Get help right away. Call 911. ??? Do not wait to see if the symptoms will go away. ??? Do not drive yourself to the hospital. Summary ??? A thyroid nodule is an isolated growth of thyroid cells that forms a lump in your thyroid gland. ??? Thyroid nodules are common. Most are not cancerous. ??? Your health care provider may monitor the nodule to see if it goes away without treatment. If a nodule contin (more content not included)... [facility] Hospital Discharge instructions 04-03-2023 Note Date & Type Note Facility 04-03-2023 Hospital Discharg e instructions Patient Education 04/03/2023 08:37:37 Vasectomy, Care After Vasectomy, Care After This sheet gives you information about how to care for yourself after your procedure. Your health care provider may also give you more specific instructions. If you have problems or questions, contact your health care provider. What can I expect after the procedure? After the procedure, it is common to have: Mild pain, swelling, or discomfort in your scrotum or redness on your scrotum. Some blood coming from your incisions or puncture sites for 1 or 2 days. Blood in your semen. Follow these instructions at home: Medicines Take gmcu-btz-jypnbyz and prescription medicines only as told by your health care provider. Avoid taking any medicines that contain aspirin or NSAIDs, such as ibuprofen. These medicines can make bleeding worse. Activity For the first 2 days after surgery, avoid physical activity and exercise that requires a lot of energy. Ask your health care provider what activities are safe for you. Do not take part in sports or perform heavy physical labor until your pain has improved, or until your health care provider says it is okay. You may have limits on the amount of weight you can lift as told by your health care provider. Do not ejaculate for at least 1 week after the procedure, or for as long as you are told. You may resume sexual activity 7 10 days after your procedure, or when your health care provider approves. Use a different method of control (contraception) until you have had test results that confirm that there is no sperm in your semen. Scrotal support Use scrotal support, such as a jockstrap or underwear with a supportive pouch, as needed for 1 week after your procedure. If you feel discomfort in your scrotum, you may remove the scrotal support to see if the discomfort is relieved. Sometimes scrotal support can press on the scrotum and cause or worsen discomfort. If your skin gets irritated, you may add some germ-free (sterile), fluffed bandages or a clean washcloth to the scrotal support. Managing pain and swelling If directed, put ice on the affected area. To do this: Put ice in a plastic bag. Place a towel between your skin and the bag. Leave the ice on for 20 minutes, 2 3 times a day. Remove the ice if your skin turns bright red. This is very important. If you cannot feel pain, heat, or cold, you have a greater risk of damage to the area. General instructions Check your incisions or puncture sites every day for signs of infection. Check for: ?Redness, swelling, or more pain. ?Fluid or blood. ?Warmth. ?Pus or a bad smell. Leave stitches (sutures) in place. The sutures will dissolve on their own and do not need to be removed. Keep all follow-up visits. This is important because you will need a test to confirm that there is no sperm in your semen. Multiple ejaculations are needed to clear out sperm that were beyond the vasectomy site. You will need one test result showing that there is no sperm in your semen before you can resume unprotected sex. This may take 2 4 months after your procedure. If you were given a sedative during the procedure, it can affect you for several hours. Do not drive or operate machinery until your health care provider says that it is safe. Contact a health care provider if: You have redness, swelling, or more pain around an incision or puncture site, or in your scrotum area. You have bleeding from an incision or puncture site. You have pus or a bad smell coming from an incision or puncture site. You have a fever. An incision or puncture site opens up. Get help right away if: You develop a rash. You have trouble breathing. Summary After your procedure, it is common to have mild pain, swelling, redness, or discomfort in your scrotum. For the first 2 days after surgery, avoid physical activity and exercise that requires a lot of energy. Put ice on the affected area. Leave the ice on for 20 minutes, 2 3 times a day. If you were given a sedative during the procedure, it can affect you for several hours. Do not drive or operate machinery until your health care provider says that it is safe. This information is not intended to replace advice given to you by your health care provider. Make sure you discuss any questions you have with your health care provider. Document Revised: 07/07/2020 Document Reviewed: 07/07/2020 [employer] Patient Education 2022 [employer]. Follow Up Care 01/31/2023 12:46:18 With:Jax GOYAL, Priyanka Dennison, WERNER, URO Address: When: Unknown Comments:Schedule Vasectomy [facility] Evaluation + Plan note Note Date & Type Note Facility Evaluation + Plan note No data available for this section [facility] Progress note Note Date & Type Note Facility Progress note No data available for this section [facility] Summary Purpose Family History No Family History Records FoundNo Family History Records Found No data available for this section No Family History Records Found Advance Directives No Advanced Directives Records FoundNo Advanced Directives Records FoundNo Advanced Directives Records Found Additional Source Comments (unrecognized sect ion and content) No Status Records FoundNo Status Records FoundNo Status Records Found INFORMATION SOURCE (unrecogn ized section and content) DATE CREATED AUTHOR 11/24/2020 [facility] DATE CREATED AUTHOR AUTHOR'S ORGANIZ ATION 03/28/2021 [facility] DATE CREATED AUTHOR AUTHOR'S ORGANIZ ATION 04/20/2024 [facility] FOR RECORDS PERTAINING TO PATIENTS WHO ARE OR HAVE BEEN ENROLLED IN A CHEMICAL DEPENDENCY/SUBSTANCEABUSE PROGRAM, SOME INFORMATION MAY BE OMITTED. This clinical summary was aggregated from multiple sources. Caution should be exercised in using it in the provision of clinical care. This summary normalizes information from multiple sources, and as a consequence, information in this document may materially change the coding, format and clinical context of patient data. In addition, data may be omitted in some cases. CLINICAL DECISIONS SHOULD BE BASED ON THE PRIMARY CLINICAL RECORDS. [employer] provides no warranty or guarantee of the accuracy or completeness of information in this document.
--- NOTE | 2024-04-21 08:48 | US_ITS ---
The [address] [address] Patient Name: TONY ETIENNE MRN: [id number] date: 1985 Sex: M Assigned Patient Location: [place] Current Patient Location: [place] Accession/Order Number: [id number] Exam Date: 04/22/2024 11:30 Report Date: 04/22/2024 11:46 At the request of: PALMA REAL NP Procedure: US thyroid THYROID ULTRASOUND COMPARISON: CT 04/17/2024 CLINICAL DATA: Follow-up thyroid nodules seen on CT. The right thyroid lobe measures 5.4 x 2.5 x 2.4 cm. The left lobe measures 4.6 x 2.1 x 1.6 cm. The thyroid lobes are heterogeneous. The isthmus measures 5 - 6 mm in thickness. Multiple thyroid nodules are present. On the right at the superior pole, there is a mixed echogenicity nodule with cystic and solid components measuring 8 x 7 x 5 mm. At the mid right thyroid lobe, there is a mixed echogenicity somewhat reniform appearing nodule with hypoechoic rim and echogenic center measuring 17 x 8 x 10 mm (TI-RADS 3). At the inferior pole on the right is another mixed echogenicity thyroid nodule with isoechoic center and hypoechoic rim measuring approximately 9 x 7 x 9 mm (TI-RADS 3]. In close proximity, there is another mixed echogenicity nodule measuring 8 x 6 x 6 mm. On the left, there is a mixed echogenicity nodule with hyperechoic components measuring 10 x 6 x 7 mm (TI-RADS 4). This correlates with coarse calcification seen on CT. Also at that level and deep within the lobe, there is a rounded hypoechoic nodule measuring 6 mm in diameter (TI-RADS 4). Also at the inferior pole on the left, there is a slightly hyperechoic nodule measuring 13 x 9 x 11 mm (TI-RADS 3). US/US thyroid IMPRESSION: MULTIPLE BILATERAL THYROID NODULES, DESCRIBED. BASED ON THE SIZE OF THESE NODULES, FOLLOW-UP ULTRASOUND IN ONE YEAR IS RECOMMENDED. Impression dictated by: Antonia Campbell M.D.04/22/2024 11:46 AM Dictation Location: [facility] Electronically authenticated by: [id number] Date: 04/22/2024 11:46
== END 2024-04-21 08:42 | disposition home or self-care (01) ==
PROVIDERS: Visit Provider Nurse Practitioner Family
DX: E04.1 Nontoxic single thyroid nodule (principal)
CPT/HCPCS: 76536